=== PATIENT | male | born 1995 | race Asian ===

== ENCOUNTER 2022-01-11 14:04 | Emergency (ER) | payer BC ==
[~2022-01-11] VITALS: Ht 170.2 cm; Wt 69.0 kg
[2022-01-11] MEDS ORDERED: DIAZEPAM 2 MG TABLET PO ONE (16:45)
[2022-01-11] MEDS ORDERED: DEXAMETHASONE 10 MG/ML VIAL IM ONE (16:45)
[2022-01-11] MEDS ORDERED: KETOROLAC 30MG/ML VIAL IM ONE (16:45)
[2022-01-11] MEDS ORDERED: LIDO700A15 TP (19:59)
[2022-01-11] MEDS ORDERED: NAPR-1176 MT (19:59)
[2022-01-11] MEDS ORDERED: CYCL10TA21 MT (19:59)
[2022-01-11 20:40] VITALS: BP 130/76
== END 2022-01-11 20:40 | disposition home or self-care (01) ==
LOC: ER 14:04
DX: S39.012A Strain of muscle, fascia and tendon of lower back, initial encounter (principal); S33.9XXA Sprain of unspecified parts of lumbar spine and pelvis, initial encounter; X58.XXXA Exposure to other specified factors, initial encounter; Y93.9 Activity, unspecified; Y92.9 Unspecified place or not applicable
CPT/HCPCS: 96372; 99284; J1100; J1885